=== PATIENT | male | born 1985 | race Two or more races ===

== ENCOUNTER 2017-03-09 23:31 | Emergency (ER) | payer SELFPAY ==
[2017-03-09] MEDS ORDERED: OXYCODONE-ACETAMINOPHEN 5-325 MG TABLET PO ONE (23:38)
[2017-03-10] MEDS ORDERED: PROPOFOL INJ 200 MG/20 ML VIAL IV ONE (00:46)
[2017-03-10] MEDS ORDERED: HYDROMORPHONE HCL INJ/PF 2 MG/ML AMPULE IV ONE (00:46)
--- NOTE | 2017-03-10 00:56 | ER Document Report ---
ED General - General Chief Complaint: Shoulder Injury Stated Complaint: RIGHT HAND INJURY Notes: Patient is a 32-year-old male who presents with a right shoulder dislocation. States that he fell in the shower when he slipped. States he's had similar dislocations to this shoulder on 2 prior occasions. On arrival he denies any additional injuries. Does describe a dull, constant, throbbing pain to the right shoulder. Nothing worsens the pain other than trying to move the shoulder. He has not tried anything for improvement of the pain. He denies any additional trauma or injury to any other area of his body. TRAVEL OUTSIDE OF THE [place] IN LAST 30 DAYS: No - Related Data Allergies/Adverse Reactions: No Known Allergies Allergy (Unverified 03/09/17 23:40) Past Medical History - General Information source: Patient - Social History Smoking Status: Never Smoker Frequency of alcohol use: None Drug Abuse: None Lives with: Family Family History: Reviewed & Not Pertinent Patient has suicidal ideation: No Patient has homicidal ideation: No Renal/ Medical History: Denies: Hx Peritoneal Dialysis Review of Systems - Review of Systems Notes: Constitutional: Negative for fever. HENT: Negative for sore throat. Eyes: Negative for visual changes. Cardiovascular: Negative for chest pain. Respiratory: Negative for shortness of breath. Gastrointestinal: Negative for abdominal pain, vomiting or diarrhea. Genitourinary: Negative for dysuria. Musculoskeletal: Positive for right shoulder pain. Skin: Negative for rash. Neurological: Negative for headaches, weakness or numbness. 10 point ROS negative except as marked above and in HPI. Physical Exam - Vital signs Vitals: Pulse Pulse Ox 88 99 03/09/17 23:36 03/09/17 23:36 Interpretation: Normal Notes: PHYSICAL EXAMINATION: GENERAL: Well-appearing, well-nourished and in no acute distress. HEAD: Atraumatic, normocephalic. EYES: Pupils equal round and reactive to light, extraocular movements intact, sclera anicteric, conjunctiva are normal. ENT: nares patent, oropharynx clear without exudates. Moist mucous membranes. NECK: Normal range of motion, supple without lymphadenopathy LUNGS: Breath sounds clear to auscultation bilaterally and equal. No wheezes rales or rhonchi. HEART: Regular rate and rhythm without murmurs ABDOMEN: Soft, nontender, normoactive bowel sounds. No guarding, no rebound. No masses appreciated. EXTREMITIES: Apparent anterior dislocation of the right shoulder. AIN, PIN, IO intact. RMU sensory disposition intact. No deformity. NEUROLOGICAL: No focal neurological deficits. Moves all extremities spontaneously and on command. PSYCH: Normal mood, normal affect. SKIN: Warm, Dry, normal turgor, no rashes or lesions noted. Course - Re-evaluation Re-evalutation: 03/10/17 00:55 Patient presents with an acute right anterior shoulder dislocation that he sustained after he slipped and fell while he was in the shower. He has had 2 prior dislocations to the side. No focal neurologic deficits. Romero maneuver was tried unsuccessfully. Will proceed with procedural sedation for relocation 03/10/17 01:44 Shoulder reduction achieved successfully. Patient has tolerated procedural sedation well. Pain is improved at this time. Postprocedure x-ray demonstrated appropriate relocation.At this time will discharge with return precautions and follow-up recommendations. Verbal discharge instructions given a the bedside and opportunity for questions given. Medication warnings reviewed. Patient is in agreement with this plan and has verbalized understanding of return precautions and the need for primary care follow-up in the next 24-72 hours. - Vital Signs Vital signs: Temp Pulse Resp BP Pulse Ox 97.6 F 66 16 126/78 H 96 03/09/17 23:39 03/10/17 01:41 03/10/17 02:01 03/10/17 02:01 03/10/17 02:01 - Diagnostic Test Radiology reviewed: Image reviewed, Reports reviewed Radiology results interpreted by me: 03/10/17 00:56 Right shoulder: Anterior shoulder dislocation Procedures - Conscious Sedation Conscious sedation Time started: :10 Time completed: :20 Consent obtained: Yes Indication: right shoulder reduction Prior complications: Procedural sedation Normal healthy pt.: P1. - ASA Classification Airway Evaluation: Normal anatomy Mallampati Classification: Class 1 Used during procedure: Suction available, IV access obtained, Pulse ox on pt., monitoring analyst on pt. Medications administered: Diprivan Reversal agents: None I personally performed/intraservice time: Sedation, Procedure, 30 min or less Complications: No - Joint Reduction/Fracture Care Right Shoulder Time completed: 01:20 Consent obtained: Yes Conscious sedation: Yes Pre-procedure NV exam: Yes Manipulation comment: direct traction and humeral head pressure Post-procedure NV exam: Yes Post-reduction x-ray: Joint reduced Reduction attempts: 1 Complications: No Discharge - Discharge Clinical Impression: Recurrent dislocation, right shoulder Condition: Good Disposition: HOME, SELF-CARE Additional Instructions: Your shoulder was dislocated today. This was reduced. Please wear the sling as needed for comfort. Follow-up with orthopedic surgery if you have recurrent shoulder dislocations. You should continue to take anti-inflammatories such as ibuprofen 600 mg every 6 hours for pain. Continue to apply ice to the area is much your able. Please return immediately if you develop weakness, numbness , spreading redness from the area, or any other symptoms that are concerning to you. Print Language: Kinyarwanda
[2017-03-10 02:40] VITALS: BP 126/78
== END 2017-03-10 02:00 | disposition home or self-care (01) ==
LOC: ER 23:31
PROC: 0RSJXZZ Reposition Right Shoulder Joint, External Approach (ICD-10-PCS; principal; 2017-03-09)
DX: M24.411 Recurrent dislocation, right shoulder (principal); M25.511 Pain in right shoulder; W18.2XXA Fall in (into) shower or empty bathtub, initial encounter
CPT/HCPCS: 99283; 96374; 73020; 73030; 23650; L3650; J1170; J2704